=== PATIENT | male | born 1990 | race Caucasian/White ===

== ENCOUNTER 2016-12-05 14:01 | Emergency (ER) | payer BC, OTHER ==
--- NOTE | 2016-12-05 14:06 | ER Document Report ---
ED Medical Screen (RME) - General Stated Complaint: POSSIBLE BUG BITE Mode of Arrival: Ambulatory Information source: Patient Notes: Patient complains of painful blisters her left hip that he just noticed this afternoon. No Pruritus. I have greeted and performed a rapid initial assessment of this patient. A comprehensive ED assessment and evaluation of the patient, analysis of test results and completion of the medical decision making process will be conducted by additional ED providers. TRAVEL OUTSIDE OF THE [place] IN LAST 30 DAYS: No - Related Data Allergies/Adverse Reactions: aspirin Allergy (Verified 08/02/16 05:38) Past Medical History Past Surgical History: Reports: Hx Myringotomy - Immunizations Hx Diphtheria, Pertussis, Tetanus Vaccination: Yes Physical Exam - Skin Skin irregularity: other - Vesicular lesion to left hip area surrounding erythema
--- NOTE | 2016-12-05 15:23 | ER Document Report ---
ED Skin Rash/Insect Bite/Abscs - General Chief Complaint: Skin Sore(s) Stated Complaint: POSSIBLE BUG BITE Time seen by provider: 14:40 Mode of Arrival: Ambulatory Information source: Patient Notes: This 26-year-old male patient comes emergency room for painful blistered area on his left lateral abdomen just above the iliac crest. He noticed it today. There was no prodrome that he knows of. The involved area is below where he wears his belt. There is no history of a reason to suspect any sort of friction wolf to the area. He did have chickenpox when he was a child. TRAVEL OUTSIDE OF THE [place] IN LAST 30 DAYS: No - Related Data Allergies/Adverse Reactions: aspirin Allergy (Verified 08/02/16 05:38) Past Medical History - General Information source: Patient - Social History Smoking Status: Current Every Day Smoker Cigarette use (# per day): Yes Chew tobacco use (# tins/day): No Smoking Education Provided: No Frequency of alcohol use: None Drug Abuse: None Occupation: manages a [employer] Lives with: Spouse/Significant other Family History: Reviewed & Not Pertinent Patient has suicidal ideation: No Patient has homicidal ideation: No - Medical History Medical History: Negative Past Surgical History: Reports: Hx Myringotomy - Immunizations Hx Diphtheria, Pertussis, Tetanus Vaccination: Yes Review of Systems - Review of Systems Constitutional: No symptoms reported EENT: No symptoms reported Cardiovascular: No symptoms reported Respiratory: No symptoms reported Gastrointestinal: No symptoms reported Genitourinary: No symptoms reported Male Genitourinary: No symptoms reported Musculoskeletal: No symptoms reported Skin: See HPI Hematologic/Lymphatic: No symptoms reported Neurological/Psychological: No symptoms reported Physical Exam - Vital signs Vitals: Temp Pulse Resp BP Pulse Ox 97.9 F 78 15 127/80 H 97 12/05/16 14:06 12/05/16 14:06 12/05/16 14:06 12/05/16 14:06 12/05/16 14:06 Interpretation: Normal - General General appearance: Appears well, Alert In distress: None - HEENT Head: Normocephalic, Atraumatic Eyes: Normal Pupils: PERRL - Respiratory Respiratory status: No respiratory distress - Cardiovascular Rhythm: Regular - Abdominal Inspection: Normal Bowel sounds: Normal Notes: The left anterolateral abdomen has an erythematous area which is approximately 4 cm tall and 7 cm long oriented diagonally in the region of the T11 dermatome. There is a longitudinally oriented blister with clear fluid. The blister is approximately 0.5 x 1 cm in size. The erythematous skin is a little sensitive. The skin is not sensitive distally and proximal to this patch of erythema. This area lies well above the patient's beltline when his pants on. There is one can fluid blister, not individual vesicles, however the area and history remain quite suspicious for this being a zoster outbreak. - Back Back: Normal - Extremities General upper extremity: Normal inspection General lower extremity: Normal inspection - Neurological Neuro grossly intact: Yes - Psychological Associated symptoms: Normal affect, Normal mood - Skin Skin Temperature: Warm Skin Moisture: Dry Skin Color: Normal Course - Vital Signs Vital signs: Temp Pulse Resp BP Pulse Ox 97.9 F 78 15 127/80 H 97 12/05/16 14:06 12/05/16 14:06 12/05/16 14:06 12/05/16 14:06 12/05/16 14:06 Discharge - Discharge Clinical Impression: Shingles outbreak Qualifiers: Herpes zoster complications: without complications Qualified Code(s): B02.9 - Zoster without complications Condition: Stable Disposition: HOME, SELF-CARE Additional Instructions: Shingles: You PROBABLY have shingles. Shingles is caused by the chicken pox virus, The virus has been surviving dormant in a nerve cell since you had chicken pox years ago. The virus has spread down a nerve root to reach the skin. Typically, an band-like area of pain and skin sensitivity develops, then small blisters erupt in the area. Shingles lasts two or three weeks, but sometimes leaves persistent pain. You are contagious -- you can give children chicken pox. But you can't give anyone shingles. Antiviral medicines (such as acyclovir or famciclovir) can help, but the rash usually worsens for about a week. Pain medication is often given if the area hurts. Antihistamines such as Benadryl may be necessary for itching if it does not respond to soda baths and calamine lotion. Sometimes cortisone medicine or nerve-block shots are necessary if pain is severe. If the area remains severely painful as the sores heal, or if you suspect an infection developing in the sores, see your doctor. TAKE THE MEDICATION PRESCRIBED. KEEP THE BLISTERED AREA CLEAN AND DRESSED. FOLLOW UP WITH A LOCAL MEDICAL DOCTOR IF NOT IMPROVING. RETURN TO THE EMERGENCY ROOM IF ANY NEW OR WORSENING SYMPTOMS. Prescriptions: Acyclovir 800 mg PO ASDIR #35 tablet
[2016-12-05 15:59] VITALS: BP 103/67
== END 2016-12-05 15:58 | disposition home or self-care (01) ==
LOC: ER 14:01
DX: B02.9 Zoster without complications (principal); F17.210 Nicotine dependence, cigarettes, uncomplicated; Z88.6 Allergy status to analgesic agent
CPT/HCPCS: 99283